=== PATIENT | male | born 1965 | race Caucasian/White ===

== ENCOUNTER 2018-03-14 07:31 | Emergency (ER) | payer MEDICAID, OTHER ==
[~2018-03-14] VITALS: Ht 180.3 cm; Wt 106.4 kg
[~2018-03-14 07:31] MED LIST: METH10 PO
[2018-03-14 11:17] VITALS: BP 126/81
== END 2018-03-14 13:38 | disposition home or self-care (01) ==
LOC: EMS 07:32
DX: L02.413 Cutaneous abscess of right upper limb (principal); L02.414 Cutaneous abscess of left upper limb; L02.415 Cutaneous abscess of right lower limb; L02.416 Cutaneous abscess of left lower limb; F11.10 Opioid abuse, uncomplicated; F17.210 Nicotine dependence, cigarettes, uncomplicated
CPT/HCPCS: 99284; 99406

== ENCOUNTER 2021-02-24 11:12 | Emergency (ER) | payer OTHER ==
[~2021-02-24] VITALS: Ht 180.3 cm; Wt 127.3 kg
[2021-02-24 11:13] VITALS: BP 160/85
[2021-02-24] MEDS ORDERED: METH10 PO (11:14)
[2021-02-24] MEDS ORDERED: SULFAMETHOX/TRIMETH DS 800-160 MG/TABLET PO ONE (14:30)
[2021-02-24] MEDS ORDERED: CEPHALEXIN MONOHYDRATE 500 MG CAPSULE PO ONE (14:30)
== END 2021-02-24 14:46 | disposition home or self-care (01) ==
LOC: EMS 11:12
DX: L02.415 Cutaneous abscess of right lower limb (principal); F19.10 Other psychoactive substance abuse, uncomplicated; F17.210 Nicotine dependence, cigarettes, uncomplicated
CPT/HCPCS: 99283

== ENCOUNTER 2022-06-20 02:51 | Emergency (ER) | payer OTHER ==
[~2022-06-20] VITALS: Ht 177.8 cm; Wt 118.2 kg
[2022-06-20] MEDS ORDERED: CEPHALEXIN MONOHYDRATE 500 MG CAPSULE PO ONE (04:00)
[2022-06-20] MEDS ORDERED: LIDOCAINE 1% 10 ML VIAL ID ONE (04:00)
[2022-06-20] MEDS ORDERED: SULFAMETHOX/TRIMETH DS 800-160 MG/TABLET PO ONE (04:00)
[2022-06-20 04:33] VITALS: BP 141/76
[2022-06-20] MEDS ORDERED: SULF-261 PO (04:34)
[2022-06-20] MEDS ORDERED: CEPH-558 PO (04:34)
== END 2022-06-20 04:46 | disposition home or self-care (01) ==
LOC: EMS 02:52
DX: L02.415 Cutaneous abscess of right lower limb (principal); F11.10 Opioid abuse, uncomplicated; F17.210 Nicotine dependence, cigarettes, uncomplicated
CPT/HCPCS: 99283; 10060; J3490

== ENCOUNTER 2022-06-27 11:17 | Emergency (ER) | payer OTHER ==
[~2022-06-27] VITALS: Ht 177.8 cm; Wt 113.6 kg
[~2022-06-27 11:17] MED LIST changes: +CEPH-558 PO; +SULF-261 PO
[2022-06-27 11:24] VITALS: BP 143/71
== END 2022-06-27 12:51 | disposition home or self-care (01) ==
LOC: EMS 11:20
DX: L02.415 Cutaneous abscess of right lower limb (principal); F19.10 Other psychoactive substance abuse, uncomplicated; F17.210 Nicotine dependence, cigarettes, uncomplicated
CPT/HCPCS: 99281; Z7502

== ENCOUNTER 2022-10-06 13:25 | Emergency (ER) | payer OTHER ==
[~2022-10-06] VITALS: Ht 180.3 cm; Wt 113.6 kg
[2022-10-06 16:10] VITALS: BP 133/71
[2022-10-06] MEDS ORDERED: PERTUSS(ACELL),DIPH,TET VAC/PF 0.5 ML SYRINGE IM. ONE (16:15)
[2022-10-06] MEDS ORDERED: LIDOCAINE 1% 10 ML VIAL SQ ONE (16:15)
[2022-10-06] MEDS ORDERED: BACTDSB PO (16:32)
== END 2022-10-06 16:56 | disposition home or self-care (01) ==
LOC: EMS 13:27
DX: L02.415 Cutaneous abscess of right lower limb (principal); F17.210 Nicotine dependence, cigarettes, uncomplicated; F19.90 Other psychoactive substance use, unspecified, uncomplicated
CPT/HCPCS: 99283; 10060; 90715; 90471; J3490

== ENCOUNTER 2022-10-30 22:32 | Emergency (ER) | payer OTHER ==
[~2022-10-30] VITALS: Ht 180.3 cm; Wt 118.2 kg
[~2022-10-30 22:32] MED LIST changes: +BACTDSB PO; -CEPH-558 PO; -SULF-261 PO
[2022-10-30 22:35] VITALS: BP 128/79
[2022-10-30] MEDS ORDERED: TraMADol HCL 50 MG TABLET PO ONE (23:45)
[2022-10-30] MEDS ORDERED: SULFAMETHOX/TRIMETH DS 800-160 MG/TABLET PO ONE (23:45)
== END 2022-10-31 00:46 | disposition home or self-care (01) ==
LOC: EMS 22:37
DX: L03.032 Cellulitis of left toe (principal); F17.210 Nicotine dependence, cigarettes, uncomplicated
CPT/HCPCS: 99283

== ENCOUNTER 2023-01-11 21:36 | Emergency (ER) | payer OTHER ==
[~2023-01-11] VITALS: Ht 180.3 cm; Wt 120.0 kg
[2023-01-11 21:43] VITALS: TEMP 98.3
[2023-01-11] MEDS ORDERED: KETOROLAC TROMETHAMINE 30 MG/ML VIAL IVP ONE (23:15)
[2023-01-11] MEDS ORDERED: SULFAMETHOX/TRIMETH DS 800-160 MG/TABLET PO ONE (23:15)
[2023-01-11] MEDS ORDERED: CefTRIAXone SODIUM 2 GM in DEXTROSE 5%-WATER 50 ML IV ONE (23:15)
[2023-01-11 23:45] LABS: BASOPHILS % (AUTO) 0.3 % (0.0-2.0); EOSINOPHILS % (AUTO) 0.9 % (1.0-6.0); HEMATOCRIT 34.9 % (41-53); HEMOGLOBIN 12.2 g/dL (13.5-17.5); LYMPHOCYTES % (AUTO) 14.1 % (22.0-44.0); MEAN CORPUSCULAR HEMOGLOBIN 31.1 pg (26.0-34.0); MEAN CORPUSCULAR VOLUME 89 fL (80-100); MONOCYTES # (AUTO) 0.5 K/uL (0.1-1.0); MONOCYTES % (AUTO) 6.9 % (2.0-9.0); NEUTROPHILS # (AUTO) 5.7 K/uL (1.8-7.7); NEUTROPHILS % (AUTO) 77.8 % (40.0-70.0); PLATELET COUNT (AUTO) 210 K/uL (150-450); RED BLOOD CELL COUNT(AUTO) 3.93 MIL/uL (4.50-5.90); RED CELL DISTRIBUTION WIDTH 14.1 % (11.5-14.5)
[2023-01-11 23:54] LABS: ANION GAP 11 mmol/L (8-16); CALCIUM, TOTAL 8.4 mg/dL (8.8-10.5); CARBON DIOXIDE 26 mmol/L (22-29); CHLORIDE 98 mmol/L (98-107); CREATININE 0.73 mg/dL (0.60-1.30); GLOMERULAR FILTR. RATE CALC > 60 mL/min (>60); GLUCOSE,RANDOM 109 mg/dL (70-110); POTASSIUM 4.3 mmol/L (3.5-5.1); SODIUM SERUM 135 mmol/L (136-145)
[2023-01-11 23:59] LABS: ALANINE AMINOTRANSFERASE 9 U/L (12-78); ALBUMIN 3.3 g/dL (3.4-5.0); ALKALINE PHOSPHATASE 77 U/L (46-116); ASPARTATE AMINOTRANSFERASE 16 U/L (15-37); BILIRUBIN,TOTAL 0.6 mg/dL (0.1-1.0); TOTAL PROTEIN, SERUM 8.6 g/dL (6.4-8.2)
[2023-01-12 00:02] LABS: LACTIC ACID 0.8 mmol/L (0.4-2.0)
[2023-01-12 00:44] VITALS: BP 127/68; PULSE 65; RESP 17
== END 2023-01-12 01:33 | disposition home or self-care (01) ==
LOC: EMS 21:37
DX: L02.416 Cutaneous abscess of left lower limb (principal); L03.116 Cellulitis of left lower limb; F17.210 Nicotine dependence, cigarettes, uncomplicated; F19.90 Other psychoactive substance use, unspecified, uncomplicated; Z98.890 Other specified postprocedural states
CPT/HCPCS: 99285; 96365; 73700; 96375; 80053; 83605; 85025; 87040; 36415; J0696; J1885; J7060; 10060